=== PATIENT | male | born 1940 | race Caucasian/White ===

== ENCOUNTER → 2017-08-24 | Outpatient (CLI) | payer OTHER ==
[~2017-08-24] MED LIST: ASPIRIN EC81 M1 PO; BENICAR HCT 401 EACH PO; CALCIUM 600 MG1 EAC3 PO; COQ-10100 MG PO; CRESTOR10 MG PO; D-20002000 UNIT PO; FOLIC ACID1 MG PO; METHOTREXATE 22.5 MG PO; MULTIVITAMIN PO; NEXIUM40 MG PO; NIASPAN 500 MG500 M1 PO; PLAVIX 75 MG TA75 MG PO; PREDNISONE 2.52.5 M1 PO; TOPROL XL50 MG PO
[2017-08-24 09:00] LABS: CALCIUM 9.6 mg/dL (8.5-10.1); CREATININE 1.4 mg/dL (0.7-1.3); POTASSIUM 4.4 mmol/L (3.5-5.1)
== END ==
LOC: CAT 07:36 → LABMALL 08:12
PROVIDERS: Internal Medicine Cardiovascular Disease
DX: I71.4 Abdominal aortic aneurysm, without rupture (principal); I25.10 Atherosclerotic heart disease of native coronary artery without angina pectoris; K76.89 Other specified diseases of liver; N28.1 Cyst of kidney, acquired; N20.0 Calculus of kidney; N42.89 Other specified disorders of prostate; I70.8 Atherosclerosis of other arteries; R93.5 Abnormal findings on diagnostic imaging of other abdominal regions, including retroperitoneum

== ENCOUNTER → 2019-09-23 | Outpatient (CLI) | payer OTHER | LOC: SJCVC 14:12 | DX: R94.31 Abnormal electrocardiogram [ECG] [EKG] (principal); I25.10 Atherosclerotic heart disease of native coronary artery without angina pectoris; I12.9 Hypertensive chronic kidney disease with stage 1 through stage 4 chronic kidney disease, or unspecified chronic kidney disease; N18.3 Chronic kidney disease, stage 3 (moderate); E78.00 Pure hypercholesterolemia, unspecified; I73.9 Peripheral vascular disease, unspecified; Z95.828 Presence of other vascular implants and grafts; Z79.899 Other long term (current) drug therapy; Z87.891 Personal history of nicotine dependence ==

== ENCOUNTER → 2020-03-28 | Outpatient (CLI) | payer OTHER | LOC: SJCVCIMAG 08:11 | PROVIDERS: ATTEND Internal Medicine Cardiovascular Disease | DX: I65.23 Occlusion and stenosis of bilateral carotid arteries (principal); I71.4 Abdominal aortic aneurysm, without rupture; I25.10 Atherosclerotic heart disease of native coronary artery without angina pectoris; E78.00 Pure hypercholesterolemia, unspecified; I73.9 Peripheral vascular disease, unspecified; I10 Essential (primary) hypertension; R07.89 Other chest pain; Z95.828 Presence of other vascular implants and grafts; Z98.890 Other specified postprocedural states ==

== ENCOUNTER → 2020-04-19 | Outpatient (CLI) | payer OTHER ==
[~2020-04-19] VITALS: Ht 175.3 cm; Wt 88.9 kg
[~2020-04-19] MED LIST changes: +ASHWAGANDHA RO300 MG PO; +ASTAXANTHIN4 MG PO; +AVAPRO 150 MG150 M1 PO; +BERBERINE PO; +FLOMAX0.4 MG PO; +FOSAMAX 70 MG T70 MG PO; +PROSCAR 5MG TABL5 MG PO; +RESVERATROL50 MG PO; +TURMERIC500 M2 PO; +UBIQUINOL100 MG PO; +[UNRECOGNIZED DRUG - OTHER] PO; +[UNRECOGNIZED DRUG - OTHER] PO
--- NOTE | ~2020-04-19 | HPC ---
[facility] [address] [place] [address] PAIN MANAGEMENT CONSULTATION Name: TOM MACHADO Room #: REG URIEL Terri#: [id number] Admission: 04/19/20 Attend Phys: Curtis Caldwell MD Discharge: Date of : 36 Report #: [id number] CC: River Caldwell DATE OF SERVICE: 04/19/2020 CHIEF COMPLAINT: Pain radiating into the right hip. I am seeing the patient at the request of Dr. Chino. He has pain in his right hip that has been ruled out as vascular claudication. He has a stent in his right iliac artery. He has good flow. His symptoms however are very classic for claudication. He walks a short distance and has to sit ____ sits for a short period of time; he can get up and walk again. He has about 5 minutes. The pain is modest at rest 3, but can be severe enough to stop him in his tracks. He does not have any x-rays. PQRS ASSESSMENT: Positive for osteoarthritis. He has pain in his hands, knees and elbows. No evidence of hip arthropathy on exam today. He is 5 feet 9 inches, BMI 28.9, blood pressure 110/60, heart rate 88, respirations 16, O2 sat 98; pain intensity at rest 3, with action can exceed 8. His worst pain has been a 10. The patient is on blood thinners, but has not fallen in the last 3 months. He is treated for hypertension. He is not on opioids. His risk assessment score is 3. His functional assessment score is 48. Denies use of tobacco, drinks alcohol a couple of times a day and in social setting averages 14 units of alcohol per week. PAST MEDICAL HISTORY: Significant for bleeding tendencies, on Plavix; hypertension, heart disease with stents. Myocardial infarctions in 1991 and 1994. Carotid surgery on the left in the past. He has AAA stent. Iliac stent replacement in 2017. He had good success with a cervical epidural injection in [address] Donnie Bryant. SOCIAL HISTORY: He retired at the age of 48 back in the days when [employer] provided pensions. He worked for [email or web address] that gave him a lifetime pension and lifetime insurance benefits; unbelievable. No [employer] in [place] provides that today. PHYSICAL EXAMINATION: GENERAL: Pleasant gentleman. VITAL SIGNS: As noted. MUSCULOSKELETAL: Moves independently from sitting to standing position, ambulates with antalgic features. Positive straight leg raising with discomfort, reproducing pain into the right hip. There is no pain with internal and external rotation. IMPRESSION: Lumbar radiculopathy on the left with neurogenic claudication. RECOMMENDATIONS: MRI is ordered. I would like to have him back for an epidural injection in 1-2 weeks. If this is radicular pain, it should respond favorably. It will be diagnostic as well as therapeutic. He needs to be off his Plavix and we will confirm that with Dr. Chino before we proceed with the injection. Seven day is how long we need him off of his medication. By: 1729 1808 Curtis Caldwell MD /nt
[2020-04-19 13:16] VITALS: BP 110/62
--- NOTE | 2020-04-19 13:45 | NUR ---
Pain Clinic Assessment: 1. History of Osteoarthritis: Not Applicable History of Rheumatoid Arthritis: hands knees elbows 2. Height: 5 ft. 9 in. 175.3 cm. Weight: 196.0 lb. oz. 88.905 kg. Patient's BMI: 28.9 3. Vital Signs: BP: 110/62 Pulse: 88 Resp: 16 Temp: 02 Sat: 98 ECG Mon: 4. Pain Intensity: 3 5. Fall Risk: Dizziness: N Needs help standing or walking: N Fallen in the last 3 months: N Fall risk comments: 6. Patient on Blood Thinner: Clopidogrel Bisulf(Plavix 7. History of Hypertension: Y 8. Opioid Therapy greater than 6 weeks: N Opiate Contract Signed: 9. Risk Assessment Tool Provided: 3-low 10. Functional Assessment Tool: 11. Recreational Drug Use: Never Drug Type: Tobacco Use: Former Smoker Tobacco Type: Amount or Packs/day: How Many Years: Alcohol Use: Yes Frequency: Daily Quant: 2
== END ==
LOC: PAIN 04-17 13:26
PROVIDERS: ATTEND Anesthesiology Pain Medicine
DX: M54.16 Radiculopathy, lumbar region (principal); Z79.891 Long term (current) use of opiate analgesic

== ENCOUNTER → 2020-04-27 | Outpatient (CLI) | payer OTHER | LOC: MRI 13:53 | PROVIDERS: ATTEND Anesthesiology Pain Medicine | DX: M47.816 Spondylosis without myelopathy or radiculopathy, lumbar region (principal); M48.061 Spinal stenosis, lumbar region without neurogenic claudication; M51.36 Other intervertebral disc degeneration, lumbar region ==

== ENCOUNTER → 2020-05-10 | Outpatient (CLI) | payer OTHER ==
[~2020-05-10] VITALS: Ht 175.3 cm; Wt 91.6 kg
[2020-05-10 09:09] VITALS: BP 129/57
--- NOTE | 2020-05-10 09:14 | NUR ---
Pain Clinic Assessment: 1. History of Osteoarthritis: LUMBAAAR SPINE History of Rheumatoid Arthritis: hands knees elbows 2. Height: 5 ft. 9 in. 175.3 cm. Weight: 202.0 lb. oz. 91.627 kg. Patient's BMI: 29.8 3. Vital Signs: BP: 129/57 Pulse: 80 Resp: 16 Temp: 02 Sat: 98 ECG Mon: 4. Pain Intensity: 0-AT REST 5. Fall Risk: Dizziness: N Needs help standing or walking: N Fallen in the last 3 months: N Fall risk comments: 6. Patient on Blood Thinner: Clopidogrel Bisulf(Plavix 7. History of Hypertension: Y 8. Opioid Therapy greater than 6 weeks: N Opiate Contract Signed: 9. Risk Assessment Tool Provided: 3-low 10. Functional Assessment Tool: 11. Recreational Drug Use: Never Drug Type: Tobacco Use: Former Smoker Tobacco Type: Amount or Packs/day: How Many Years: Alcohol Use: Yes Frequency: Quant:
== END | disposition home or self-care (01) ==
LOC: PAIN 06:50
PROVIDERS: ATTEND Anesthesiology Pain Medicine
DX: M54.16 Radiculopathy, lumbar region (principal); M48.061 Spinal stenosis, lumbar region without neurogenic claudication; I10 Essential (primary) hypertension; M19.90 Unspecified osteoarthritis, unspecified site; Z79.899 Other long term (current) drug therapy; Z98.890 Other specified postprocedural states; Z87.891 Personal history of nicotine dependence; Z91.041 Radiographic dye allergy status; Z91.040 Latex allergy status; Z88.8 Allergy status to other drugs, medicaments and biological substances; Z88.0 Allergy status to penicillin

== ENCOUNTER → 2020-05-16 | Outpatient (CLI) | payer OTHER | LOC: SJCVCIMAG 10:43 | PROVIDERS: ATTEND Internal Medicine Cardiovascular Disease | DX: I49.3 Ventricular premature depolarization (principal); I25.10 Atherosclerotic heart disease of native coronary artery without angina pectoris; I10 Essential (primary) hypertension; E78.5 Hyperlipidemia, unspecified; Z87.891 Personal history of nicotine dependence; Z79.82 Long term (current) use of aspirin; Z79.899 Other long term (current) drug therapy; Z98.61 Coronary angioplasty status ==

== ENCOUNTER → 2020-07-16 | Outpatient (CLI) | payer OTHER ==
[~2020-07-16] VITALS: Ht 175.3 cm; Wt 92.2 kg
[2020-07-16 10:57] VITALS: BP 116/57
--- NOTE | 2020-07-16 11:22 | NUR ---
Pain Clinic Assessment: 1. History of Osteoarthritis: lumbar History of Rheumatoid Arthritis: hands knees elbows 2. Height: 5 ft. 9 in. 175.3 cm. Weight: 203.2 lb. oz. 92.171 kg. Patient's BMI: 30.0 3. Vital Signs: BP: 116/57 Pulse: 86 Resp: 16 Temp: 02 Sat: 96 ECG Mon: 4. Pain Intensity: 0-AT REST 5. Fall Risk: Dizziness: N Needs help standing or walking: N Fallen in the last 3 months: N Fall risk comments: 6. Patient on Blood Thinner: Clopidogrel Bisulf(Plavix 7. History of Hypertension: Y 8. Opioid Therapy greater than 6 weeks: N Opiate Contract Signed: 9. Risk Assessment Tool Provided: 3-low 10. Functional Assessment Tool: 11. Recreational Drug Use: Never Drug Type: Tobacco Use: Former Smoker Tobacco Type: Cigarettes Amount or Packs/day: 1 1/2 ppd How Many Years: 52 Alcohol Use: Yes Frequency: Daily Quant: 2 drinks/day
== END | disposition home or self-care (01) ==
LOC: PAIN 06:54
PROVIDERS: ATTEND Anesthesiology Pain Medicine
DX: M51.16 Intervertebral disc disorders with radiculopathy, lumbar region (principal); M48.061 Spinal stenosis, lumbar region without neurogenic claudication; G89.29 Other chronic pain; I10 Essential (primary) hypertension; M19.90 Unspecified osteoarthritis, unspecified site; Z98.890 Other specified postprocedural states; Z79.899 Other long term (current) drug therapy; Z79.891 Long term (current) use of opiate analgesic; Z88.0 Allergy status to penicillin; Z88.8 Allergy status to other drugs, medicaments and biological substances; Z91.041 Radiographic dye allergy status

== ENCOUNTER → 2020-10-29 | Outpatient (CLI) | payer OTHER ==
[~2020-10-29] VITALS: Ht 175.3 cm; Wt 93.4 kg
[2020-10-29 13:40] VITALS: BP 111/72
--- NOTE | 2020-10-29 13:58 | NUR ---
Pain Clinic Assessment: 1. History of Osteoarthritis: lumbar History of Rheumatoid Arthritis: hands knees elbows BACK 2. Height: 5 ft. 9 in. 175.3 cm. Weight: 206.0 lb. oz. 93.441 kg. Patient's BMI: 30.4 3. Vital Signs: BP: 111/72 Pulse: 115 Resp: 16 Temp: 02 Sat: 97 ECG Mon: 4. Pain Intensity: 8-9 WHEN ACTIVE, 0-REST 5. Fall Risk: Dizziness: N Needs help standing or walking: N Fallen in the last 3 months: N Fall risk comments: 6. Patient on Blood Thinner: Clopidogrel Bisulf(Plavix 7. History of Hypertension: Y 8. Opioid Therapy greater than 6 weeks: N Opiate Contract Signed: 9. Risk Assessment Tool Provided: 3-low 10. Functional Assessment Tool: 11. Recreational Drug Use: Never Drug Type: Tobacco Use: Former Smoker Tobacco Type: Cigarettes Amount or Packs/day: 1 1/2 PPD How Many Years: 52 Alcohol Use: Yes Frequency: Daily Quant: 2/SHOTS/DAY
== END ==
LOC: PAIN 09:52
PROVIDERS: ATTEND Anesthesiology Pain Medicine
DX: M16.0 Bilateral primary osteoarthritis of hip (principal); M54.16 Radiculopathy, lumbar region; Z79.82 Long term (current) use of aspirin; Z79.899 Other long term (current) drug therapy; Z88.0 Allergy status to penicillin; Z88.8 Allergy status to other drugs, medicaments and biological substances

== ENCOUNTER → 2021-01-31 | Outpatient (CLI) | payer OTHER | LOC: SJCVCIMAG 09:14 | PROVIDERS: ATTEND Internal Medicine Cardiovascular Disease | DX: I65.21 Occlusion and stenosis of right carotid artery (principal); I70.201 Unspecified atherosclerosis of native arteries of extremities, right leg; I49.3 Ventricular premature depolarization; I77.9 Disorder of arteries and arterioles, unspecified; I25.10 Atherosclerotic heart disease of native coronary artery without angina pectoris; I10 Essential (primary) hypertension; R07.89 Other chest pain; E78.00 Pure hypercholesterolemia, unspecified; Z98.890 Other specified postprocedural states; Z95.828 Presence of other vascular implants and grafts; Z88.8 Allergy status to other drugs, medicaments and biological substances; Z79.82 Long term (current) use of aspirin; Z79.899 Other long term (current) drug therapy; Z87.891 Personal history of nicotine dependence; Z82.49 Family history of ischemic heart disease and other diseases of the circulatory system ==

== ENCOUNTER 2021-02-19 07:40 | Observation (INO) | payer OTHER ==
[~2021-02-19] VITALS: Ht 175.3 cm; Wt 90.7 kg
[2021-02-19] VITALS (9 sets, daily range): BP systolic 119–136; BP diastolic 47–75
[2021-02-19 12:24] LABS: ABSOLUTE NEUTROPHILS 5.8 thou/uL (1.4-8.2); BASOPHILS 0.3 % (0.0-2.0); EOSINOPHILS 1.3 % (0.0-3.0); HEMATOCRIT 35.3 % (42.0-52.0); HEMOGLOBIN 11.7 gm/dL (14.0-18.0); LYMPHOCYTES 11.7 % (24.0-44.0); MCH 32.8 pg (26.0-34.0); MCHC 33.2 g/dL (28.0-37.0); MCV 98.8 fL (80.0-100.0); MONOCYTES 7.4 % (1.0-8.0); PLATELET COUNT 123 thou/uL (150-400); POLYS 79.3 % (36.0-66.0); RBC 3.58 mil/uL (4.50-6.00); RDW 14.7 % (10.5-14.5); WBC 7.3 thou/uL (4.0-11.0)
[2021-02-19 12:29] LABS: CALCIUM 9.1 mg/dL (8.5-10.1); CREATININE 1.6 mg/dL (0.7-1.3); POTASSIUM 4.1 mmol/L (3.5-5.1)
[2021-02-19 12:36] LABS: ALBUMIN 3.4 g/dL (3.4-5.0); TOTAL BILIRUBIN 0.7 mg/dL (0.2-1.0); TOTAL PROTEIN 6.2 g/dL (6.4-8.2)
[2021-02-19 15:18] LABS: URINE BILIRUBIN NEGATIVE (Negative); URINE BLOOD TRACE (Negative); URINE CLARITY CLEAR; URINE COLOR YELLOW; URINE GLUCOSE-RANDOM* NEGATIVE (Negative); URINE KETONES NEGATIVE (Negative); URINE LEUKOCYTES-REFLEX NEGATIVE (Negative); URINE NITRITE-REFLEX NEGATIVE (Negative); URINE PROTEIN (DIPSTICK) NEGATIVE (Negative); URINE SPECIFIC GRAVITY <= 1.005 (1.005-1.035); URINE UROBILINOGEN 0.2 E.U./dl (0.2-1.0)
--- NOTE | 2021-02-19 15:33 | NUR ---
PT ORIENTED TO ROOM AND UNIT, BED LOW AND LOCKED, SIDE RAILS UPX3, CALL LIGHT IN REACH, RIGHT GROIN CDI, TELE APPLIED WILL CONTINUE TO ASSESS.
[2021-02-20 00:07] VITALS: BP 139/53
[2021-02-20 04:00] VITALS: BP 132/55
[2021-02-20 04:47] LABS: HEMATOCRIT 31.9 % (42.0-52.0); HEMOGLOBIN 10.8 gm/dL (14.0-18.0); MCH 33.3 pg (26.0-34.0); MCHC 33.9 g/dL (28.0-37.0); MCV 98.4 fL (80.0-100.0); RBC 3.25 mil/uL (4.50-6.00); RDW 15.1 % (10.5-14.5); WBC 10.2 thou/uL (4.0-11.0)
[2021-02-20 05:22] LABS: ALBUMIN 2.9 g/dL (3.4-5.0); CALCIUM 8.3 mg/dL (8.5-10.1); CREATININE 1.3 mg/dL (0.7-1.3); POTASSIUM 4.5 mmol/L (3.5-5.1); TOTAL BILIRUBIN 0.4 mg/dL (0.2-1.0); TOTAL PROTEIN 5.3 g/dL (6.4-8.2); TROPONIN-I 0.09 ng/mL (<0.06)
--- NOTE | 2021-02-20 07:48 | EKG ---
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: FSCHWALBE : 1940 Requested By: Beatrice Robert Order Number: [id number] MD: Constantine Morin Measurements Intervals Baker Rate: 79 P: 47 OK: 176 QRS: 42 QRSD: 95 T: 61 QT: 359 QTc: 412 Interpretive Statements Sinus rhythm Ventricular premature complex Borderline low voltage, extremity leads Baseline wander in lead(s) V6 Compared to ECG 09/26/2008 07:34:49 Ventricular premature complex(es) now present Electronically Signed On 02-20-2021 7:48:06 CDT by Constantine Morin [email or web address] <ELECTRONICALLY SIGNED> By: Constantine Morin MD, FAC 02/20/21 0748 182 27 Constantine Morin MD, [facility] /EPI
[2021-02-20 08:01] VITALS: BP 150/66
[2021-02-20 10:59] LABS: APTT 22.4 Seconds (24.5-32.8); INR 1.04; PROTIME 11.3 Seconds (10.5-12.1)
[2021-02-20 12:14] VITALS: BP 120/60
[2021-02-20 13:02] VITALS: BP 120/60
--- NOTE | 2021-02-20 13:49 | NUR ---
DISCONTINUE IV AND TELE. PT UNDERSTAND ALL FOLLOW UP ORDERS. [employer] T[employer]OR CONTACTED JIGNA TOMLIN AND PT OK TO GO HOME. DISCHARGE TO [facility] VIA PRIVATE VEHICLE.
--- NOTE | 2021-02-21 15:22 | HC ---
[facility] [place] [address] [place] [address] CONSULTATION Name: TOM MACHADO Room #: 208-P [facility] Za Murray#: [id number] Admission: 02/19/21 Attend Phys: Charan Monge MD Discharge: 02/20/21 Date of : 38 Report #: [id number] THIS REPORT FOR: cc: River Lindo MD, Eric K. MD Forman, John M. MD ~ DATE OF SERVICE: 02/20/2021 We were asked to see the patient by Dr. Monge. HISTORY OF PRESENT ILLNESS: The patient is an 80-year-old with right lower extremity arterial occlusive disease. The patient states that he has had buttock claudication for approximately 1 year. Recently, however, the patient has begun to have right calf discomfort. This led to an arteriogram by Dr. Monge that shows 95% right femoral artery stenosis. The patient has had a previous aortic stent graft placed for aneurysm. Also, the runoff views show no superficial femoral artery occlusive disease on the right and popliteal and at least proximal tibial vessels are patent. The patient has a history of coronary artery disease and had stent placement. The patient is also treated for hypertension and dyslipidemia. MEDICATIONS: Includes aspirin, Plavix, Proscar, metoprolol, prednisone, Crestor, tadalafil, Flomax. ALLERGIES: THE PATIENT STATES HE IS ALLERGIC TO PENICILLIN, STATES THAT HE TOOK THIS WHEN HE WAS 12 FOR PNEUMONIA AND WAS "OUT OF IT FOR 2 DAYS," BUT DOES NOT KNOW THE SPECIFIC REACTION. HE ALSO NOTE GI INTOLERANCE TO ERYTHROMYCIN AND AN ALLERGY TO IODINE CONTRAST. SOCIAL HISTORY: The patient is a longtime smoker who has quit. REVIEW OF SYSTEMS: GENERAL: Denies change in weight, fever or chills. EYES: Denies vision change. ENT: Denies hearing loss or sinus problems. RESPIRATORY: Denies cough or shortness of breath or hemoptysis. CARDIAC: Denies angina. GASTROINTESTINAL: Denies nausea, vomiting, blood in stools. GENITOURINARY: Denies urgency, frequency, blood. MUSCULOSKELETAL: Denies bone or joint pain. SKIN: Denies rash or infection. [facility] [address] [place] [address] CONSULTATION Name: TOM MACHADO CADDO MILLS Room #: 208-P [facility] Terri#: [id number] Admission: 02/19/21 Attend Phys: Charan Monge MD Discharge: 02/20/21 Date of : 38 Report #: [id number] ENDOCRINE: Denies goiter or tremor. NEUROLOGIC: Denies motor or sensory dysfunction. HEMATOLOGIC: Denies bruisability or bleeding. PHYSICAL EXAMINATION: GENERAL: The patient is lying in bed, awaiting discharge. VITAL SIGNS: Temperature 36.4, heart rate 82, respiratory rate 16, blood pressure 150/66, pulse ox 96 on room air. HEENT: No scleral icterus. No arcus. NECK: No mass. I hear no bruit. CHEST: Clear to auscultation. HEART: Rhythm regular, no murmur. ABDOMEN: Soft, no mass, no tenderness. EXTREMITIES: No clubbing, cyanosis or edema. VASCULAR: 1+ femoral pulse on the right. No popliteal, dorsalis pedis or posterior tibial pulse on the right. The left side, the femoral artery was accessed for vascular study yesterday, popliteal pulses 2+. I do not feel dorsalis pedis on the left. NEUROLOGIC: No motor or sensory dysfunction. MUSCULOSKELETAL: No obvious bone or joint asymmetry or deformity. SKIN: No rash or infection. PSYCHIATRIC: Oriented x3 and appropriate, shows insight into problem. I reviewed the arteriographic findings with the patient. I have recommended that he have a right femoral endarterectomy. The risks and details of this were discussed. Options and alternatives were reviewed. Risks include, but are not limited to, bleeding, infection, anesthesia risks, and failure of the operation. The patient understands all of this and he wishes to proceed. The patient wishes to wait until after 03/05/2021 to schedule surgery. From my point of view, this is satisfactory. It is a privilege to participate in this challenging patient's care. Thank you for the consult. <ELECTRONICALLY SIGNED> By: Richard Valdez MD 02/21/21 1522 1030 2149 Richard Valdez MD /nt
--- NOTE | 2021-02-21 16:42 | CATHLAB ---
[facility] [address] [place] [address] INVASIVE PROCEDURE REPORT Name: TOM MACHADO Room #: 208-P [facility] Za M.RCarlos#: [id number] Admission: 02/19/21 Attend Phys: Charan Monge MD Discharge: 02/20/21 Date of : 38 Report #: [id number] THIS REPORT FOR: cc: River Lindo MD, Eric K. MD Mancuso, Gerald M. MD [facility] ~ APPROVED REPORT Study performed: 02/19/2021 12:02:35 Procedure Narrative A 6f brite tip sheath sheath was inserted into the LFA^. Coronary angiography was performed using coronary diagnostic catheters. The right coronary system was accessed and visualized with a JR4 catheter. The left coronary system was accessed and visualized with a JL4 catheter. The left ventricle was accessed and visualized with a STR PIG catheter. Left ventriculogram was performed in 30 degree projection. There was no hematoma. Intraoperative Conscious Sedation Sedation start time: 1255 Case end Time: 1410 Fentanyl 100 mcg Versed 1 mg Fluoro Time: 22.42 minutes Dose: DAP 36639.10 cGycm2 3389 mGy Contrast Type and Amount: Visipaque 322 ml Hemodynamics The aortic pressure is 138/55 mmHg with a mean of 80 mmHg. The left ventricular pressure is 154/8 mmHg with a mean of mmHg. The left ventricular end diastolic pressure is 20 mmHg. PCI Technique Lesion Percutaneous coronary intervention was performed on the Common iliac. A LAUNCHER 6FR JR 4 90CM #[id number] Guide Catheter was used to engage the ostium. A Luge Wire .014 x 182CM #[id number] Interventional Guidewire was used to cross the lesion. BALLOON DILATION A Balloon catheter Sprinter OTW 2.5 x 12 #[id number] was inserted and inflated up to 16atm for 33seconds. Additional Inflation: 18atm for 26seconds. [facility] [place] [address] INVASIVE PROCEDURE REPORT Name: TOM MACHADO VAMSI Room #: 208-P [facility] IN M.R.#: [id number] Admission: 02/19/21 Attend Phys: Charan Monge, Discharge: 02/20/21 Date of : 38 Report #: [id number] STENT DEPLOYMENT A stent RESOLUTE YADIEL OTW 2.75 X 12 #[id number] was inserted and inflated up to 20atm for 34seconds. POST STENT DEPLOYMENT BALLOON DILATION A Balloon catheter TREK NC OTW 3.0 X 12 #[id number] was inserted and inflated up to 16atm for 23seconds. Additional Inflation: 22atm for 21seconds. Additional Inflation: 22atm for 19seconds. This balloon was used to post the 1st sent 2.75x12. STENT DEPLOYMENT A stent RESOLUTE YADIEL OTW 3.0 X 8 #[id number] was inserted and inflated up to 18atm for 30seconds. Additional Inflation: 20atm for 27seconds. This 2nd stent placed prox to the 2.75x12. POST STENT DEPLOYMENT BALLOON DILATION A Balloon catheter TREK NC OTW 3.5 X 12 #[id number] was inserted and inflated up to 16atm for 23seconds. Additional Inflation: 22atm for 21seconds. Additional Inflation: 22atm for 19seconds. PCI Technique Lesion 2 Percutaneous Coronary Intervention was performed on the mid right coronary artery. PCI Technique Lesion 3 Percutaneous Coronary Intervention was performed on the mid right coronary artery. Conclusion #1 Successful PTCA stent of a high-grade mid RCA lesion in a large dominant vessel. Placement of a 2.75 x 12 and 3 oh by 8 resolute Baldwin stents in tandem postdilated with a 3.5 mm noncompliant balloon with MIGUEL grade III flow no dissection or thrombus formation. Technically difficult but with good final result. #2 left main with mild calcification and distal tapered narrowing giving rise to LAD and circumflex. #3 extensive calcification of proximal LAD with moderate irregularities proximal and mid vessel but no high-grade occlusive disease. This wraps the apex. Previously placed mid vessel stents remain patent with only mild restenosis. #4 circumflex OM nondominant also with proximal calcification and eccentric 70 to 75% proximal lesion filling a large OM branch. We will follow this. #5 normal left ventricular size and systolic function EF 60%. [facility] [address] [place] [address] INVASIVE PROCEDURE REPORT Name: TOM MACHADO Room #: 208-P DIS IN M.R.#: [id number] Admission: 02/19/21 Attend Phys: Charan Monge, Discharge: 02/20/21 Date of : 36 Report #: [id number] Recommendations and plan: Continue aggressive risk factor modification. Dual antiplatelet therapy has been initiated. Transfer to CCU to follow post coronary stent protocol. <ELECTRONICALLY SIGNED> By: Rigo Chino MD, FACC 02/21/211641 41 41 Rigo Chino MD, FACC /INF
== END 2021-02-20 13:13 | disposition home or self-care (01) ==
LOC: CATH 07:40 → 2N 15:34 → CATH 02-20 09:49 → 2N 02-20 13:13
PROVIDERS: Nurse Practitioner Adult Health; Surgery Vascular Surgery; ADMIT Internal Medicine Cardiovascular Disease; ATTEND Nuclear Medicine Nuclear Cardiology
DX: I25.10 Atherosclerotic heart disease of native coronary artery without angina pectoris (principal); I73.9 Peripheral vascular disease, unspecified; I10 Essential (primary) hypertension; E78.5 Hyperlipidemia, unspecified; I71.4 Abdominal aortic aneurysm, without rupture; Z79.02 Long term (current) use of antithrombotics/antiplatelets; Z79.899 Other long term (current) drug therapy; Z88.0 Allergy status to penicillin; Z91.013 Allergy to seafood; Z91.041 Radiographic dye allergy status; Z88.1 Allergy status to other antibiotic agents; Z88.8 Allergy status to other drugs, medicaments and biological substances; Z79.01 Long term (current) use of anticoagulants

== ENCOUNTER → 2021-03-18 | Outpatient (CLI) | payer OTHER ==
[~2021-03-18] MED LIST changes: +RAYOS5 MG PO
== END ==
LOC: LAB 06:38
PROVIDERS: ATTEND Student in an Organized Health Care Education/Training Program
DX: Z01.812 Encounter for preprocedural laboratory examination (principal); Z20.822 Contact with and (suspected) exposure to COVID-19

== ENCOUNTER 2021-03-19 06:06 | Inpatient (IN) | payer OTHER ==
[2021-03-19] VITALS (11 sets, daily range): BP systolic 94–130; BP diastolic 37–67
[~2021-03-19] VITALS: Ht 175.3 cm; Wt 88.5 kg
--- NOTE | 2021-03-19 14:58 | O ---
[facility] [place] [address] [place] [address] OPERATIVE REPORT Name: TOM MACHADO Room #: 249-P ADM IN M.R.#: [id number] Admission: 03/19/21 Attend Phys: Richard Valdez MD Discharge: Date of : 36 Report #: [id number] THIS REPORT FOR: cc: River Lindo MD, Eric K. MD Forman,Richadr Robledo MD ~ DATE OF SERVICE: 03/19/2021 PREOPERATIVE DIAGNOSIS: Right femoral arterial occlusive disease. POSTOPERATIVE DIAGNOSIS: Right femoral arterial occlusive disease. OPERATION: Right femoral endarterectomy with patch closure. SURGEON: Richard Valdez MD SNOW GROOMER: TAURUS Ferrari ANESTHESIA: General. INDICATIONS: The patient is an 80-year-old with limiting claudication in the right lower extremity. Arteriography demonstrates high-grade stenosis in the superficial femoral artery with reasonable runoff. FINDINGS AND TECHNIQUE: After general anesthesia was established, incision was made in the right groin to expose the common, deep and superficial femoral artery. The patient had had previous stent graft implant and arteriography and for these reasons, there was considerable scarring around the femoral artery. Once these arteries were exposed and controlled, 10,000 units of heparin were given. The femoral arteriotomy was made. The endarterectomy was performed without creating a distal flap. Neointima was inspected and all loose debris was removed. When the endarterectomy was deemed to be satisfactory, tacking sutures were placed at the transition zone and then the arteriotomy was closed with thin-walled pericardial patch and running Prolene. Prior to finishing the closure, the vessels were backbled and the artery was irrigated with heparinized saline. Flow was reestablished. Protamine was given to reverse the heparin and when hemostasis was satisfactory, the wound was closed in layers. Because the patient was on aspirin and Plavix, this took the typical extended amount of time. The patient tolerated the [facility] [address] [place] [address] OPERATIVE REPORT Name: CHANDANAMERONTOM LOPEZ Room #: 249-P [facility] IN .R.#: [id number] Admission: 03/19/21 Attend Phys: Richard Valdez MD Discharge: Date of : 36 Report #: [id number] procedure well and was taken to the recovery area in good condition with a strong popliteal pulse. All counts were reported as correct. <ELECTRONICALLY SIGNED> By: Richard Valdez MD 03/19/21 1458 1207 1220 Richard Valdez MD /nt
--- NOTE | 2021-03-19 17:59 | NUR ---
PT ARRIVED TO THE UNIT FROM PACU VIA 2 STAFF ESCORT, BELONGINGS IN A CLEAR BAG W/ NIKE MONARCHs PRESENT. AT THE TIME OF ARRIVAL 2.5 CARDENE RUNNING, ARTLINE PRESENT IN THE PATIENT. NO COMPLAINTS OF PAIN. AT THE TIME OF FIRST ASSESSMENT POPLITEAL PULSES WERE PRESENT. STATES HAVING ALL SENSATIONS IN TACT, PULSES PRESENT IN ALL EXTREMETIES. R GROIN NO S/SX OF HEMATOMA, WOUND DRESSING IN CLEAN/DRY/INTACT AND TO SUCTION. SAW THE PATIENT. PT TO BE MONITORED OVERNIGHT AT THE ICU. BLOOD PRESSURE FROM CUFF READS LOWER THAN THE R RADIAL ART LINE WAVEFORM. WILL ADHERE TO THE ARTLINE FOR TREATMENT. PT'S SON WAS IN THE ROOM PRESENT DURING THE ADMISSION AND HAD OPPORTUNITY TO ASK THE STAFF MEMBER QUESTIONS. PT WISHED TO SPEAK WITH ON THE PHONE SO RNs ACCOMODATED TO HAVE COMMUNICATE VIA PHONE. PAIN IS MINIMAL, HYDROCODONE X1 GIVEN. PT AGREEABLE TO PLAN OF CARE AND ADHERING THE IT. CONTINUING TO MONITOR, WILL UPDATE WHEN NECESSARY
[2021-03-20] VITALS (10 sets, daily range): BP systolic 101–124; BP diastolic 42–53
[2021-03-20 06:08] LABS: HEMATOCRIT 28.3 % (42.0-52.0); HEMOGLOBIN 9.4 gm/dL (14.0-18.0); MCH 32.9 pg (26.0-34.0); MCHC 33.4 g/dL (28.0-37.0); MCV 98.7 fL (80.0-100.0); RBC 2.87 mil/uL (4.50-6.00); RDW 14.7 % (10.5-14.5); WBC 9.7 thou/uL (4.0-11.0)
[2021-03-20 06:20] LABS: CALCIUM 8.3 mg/dL (8.5-10.1); CREATININE 1.4 mg/dL (0.7-1.3); POTASSIUM 3.9 mmol/L (3.5-5.1)
--- NOTE | 2021-03-20 12:04 | NUR ---
Status post right femoral arterial endarterectomy with patch closure. Noted per CT surgery today with strong right popliteal pulse. Spouse Rosi at [phone] and sone Kee at [phone] listed as next of kin. Spoke son who states huis father is A&O x4, drives and can do all ADL's. Patient has even arranged for home food delivery in his post hospitalization convalesce. Son reports no history of Home Health or Skilled in the past. Patient and son and are anticipating discharge home with possible home health. CM will follow for MD recommendations of need at discharge.
--- NOTE | 2021-03-20 20:11 | NUR ---
ASSUMED CARE OF PT AT 0700. PT IS PROGRESSING TOWARDS GOALS BP IS STABLE, HAS GOOD PULSES, ORDERS TO TRANSFER TO STEP DOWN.
[2021-03-21 00:01] VITALS: BP 131/60
[2021-03-21 02:01] VITALS: BP 141/62
[2021-03-21 04:00] VITALS: BP 139/52
[2021-03-21 06:00] VITALS: BP 157/66
--- NOTE | 2021-03-21 10:07 | PATH ---
[facility] [address] [place] [address] PATHOLOGY RPT PROCEDURE Name: TOM MACHADO Room #: 249-P ADM IN M.R.#: [id number] Admission: 03/19/21 Date of : 36 Discharge: Report #: [id number] Path Case #: [id number] [facility] Accession Number: [id number] . 01 Material submitted: . artery - RIGHT FEMORAL PLAQUE. Modifiers: right, femoral . 01 Clinical history: . FEMORAL ENDARTERECTOMY . 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 (IUV/db; 03/20/2021) LBQ 03/20/2021 1414 Local . 02 Electronically signed: . Yessi Balderrama MD, Pathologist NPI- [id number] . 01 Gross description: . The specimen is received in formalin, labeled "Tom Machado, right femoral plaque". It consists of multiple fitzgerald-yellow, focally calcified soft tissue segments measuring 4.3 x 2.1 x 1.0 cm in aggregate. 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 (MRF; 03/19/2021) MFE/MFE 03/19/2021 1818 Local . 02 Pathologist provided ICD-10: I70.201 . 02 CPT . 489547, 432356 Specimen Comment: A courtesy copy of this report has been sent to [phone], [phone] Specimen Comment: [id number] Specimen Comment: Report sent to / DR WERNER Specimen Comment: A duplicate report has been generated due to demographic updates. Performed at: 01 [facility] [address] [id number] MD Daniel Frazier MD Phone: [phone] Performed at: [address] [id number] [address] [address] PATHOLOGY RPT PROCEDURE Name: TOM MACHADO INDEPENDENCE Room #: 249-P [facility] IN M.R.#: [id number] Admission: 03/19/21 Date of : 36 Discharge: Report #: [id number] Path Case #: [id number] MD Yessi Balderrama MD Phone: [phone]
[2021-03-21 14:05] VITALS: BP 157/66
--- NOTE | 2021-03-21 15:59 | NUR ---
ASSUMED CARE OF PT AT [address] ALBRIGHT AT BEDSIDE AT 1030 DISCHARGE ORDERS GIVEN PT LEFT THE HOSPITAL WITH HIS SON JER AT 1350 WITH ALL CLOTHES TO INCLUDE, SHIRT, SHORTS, BELT UNDERWEAR, SOCK AND SHOES, THE PATIENT ALSO HAD HIS GLASSES AND HIS SHAVING KIT WITH HIM.
== END 2021-03-21 15:50 | disposition home or self-care (01) | DRG 254 ==
LOC: TBA 06:06 → ICU 06:06 → OR 09:31 → EDSTATUS 09:33 → PRE 09:42 → ICU 13:21
PROVIDERS: ADMIT Surgery Vascular Surgery; ATTEND Surgery Vascular Surgery
PROC: 04CK0ZZ Extirpation of Matter from Right Femoral Artery, Open Approach (ICD-10-PCS; principal; 2021-03-19)
PROC: 04UK0KZ Supplement Right Femoral Artery with Nonautologous Tissue Substitute, Open Approach (ICD-10-PCS; principal; 2021-03-19)
DX: I70.201 Unspecified atherosclerosis of native arteries of extremities, right leg (principal); I10 Essential (primary) hypertension; Z79.82 Long term (current) use of aspirin; Z79.899 Other long term (current) drug therapy; Z88.1 Allergy status to other antibiotic agents; Z91.041 Radiographic dye allergy status; Z88.0 Allergy status to penicillin; Z91.013 Allergy to seafood
CPT/HCPCS: 10078; 10203; 10204; 47375; 48889; 50010; 50101; 50386; 50455; 50643; 50953; 52287; 56524; 56526; 56528; 56531; 56534; 56668; 56760; 57092; 57093; 58585; 58731; 62110; 62900; 65020; 70005

== ENCOUNTER → 2021-06-19 | Outpatient (CLI) | payer OTHER | LOC: SJCVCIMAG 08:10 | PROVIDERS: ATTEND Nuclear Medicine Nuclear Cardiology | DX: R94.31 Abnormal electrocardiogram [ECG] [EKG] (principal); I71.4 Abdominal aortic aneurysm, without rupture; I25.10 Atherosclerotic heart disease of native coronary artery without angina pectoris; I12.9 Hypertensive chronic kidney disease with stage 1 through stage 4 chronic kidney disease, or unspecified chronic kidney disease; N18.30 Chronic kidney disease, stage 3 unspecified; I77.9 Disorder of arteries and arterioles, unspecified; E78.00 Pure hypercholesterolemia, unspecified; Z88.8 Allergy status to other drugs, medicaments and biological substances; Z88.0 Allergy status to penicillin; Z91.013 Allergy to seafood; Z95.828 Presence of other vascular implants and grafts; Z98.890 Other specified postprocedural states; Z79.82 Long term (current) use of aspirin; Z79.899 Other long term (current) drug therapy; Z72.89 Other problems related to lifestyle; Z87.891 Personal history of nicotine dependence ==

== ENCOUNTER 2021-07-03 17:54 | Emergency (ER) | payer OTHER ==
[~2021-07-03] VITALS: Ht 172.7 cm; Wt 88.9 kg
[2021-07-03 19:49] LABS: ABSOLUTE NEUTROPHILS 8.4 thou/uL (1.4-8.2); BASOPHILS 0.4 % (0.0-2.0); EOSINOPHILS 0.3 % (0.0-3.0); HEMATOCRIT 33.5 % (42.0-52.0); LYMPHOCYTES 4.9 % (24.0-44.0); MCH 31.9 pg (26.0-34.0); MCHC 32.8 g/dL (28.0-37.0); MCV 97.2 fL (80.0-100.0); MONOCYTES 11.2 % (1.0-8.0); PLATELET COUNT 138 thou/uL (150-400); POLYS 83.2 % (36.0-66.0); RBC 3.44 mil/uL (4.50-6.00); RDW 15.6 % (10.5-14.5); WBC 10.1 thou/uL (4.0-11.0)
[2021-07-03 19:50] LABS: CALCIUM 9.4 mg/dL (8.5-10.1); CREATININE 1.4 mg/dL (0.7-1.3); POTASSIUM 3.7 mmol/L (3.5-5.1)
[2021-07-03 19:59] LABS: ALBUMIN 3.4 g/dL (3.4-5.0); TOTAL BILIRUBIN 0.7 mg/dL (0.2-1.0); TOTAL PROTEIN 6.7 g/dL (6.4-8.2)
[2021-07-03] MEDS ORDERED: DOXYCYCLINE 10100 MG PO (22:03)
[2021-07-03 22:10] VITALS: BP 115/70
--- NOTE | 2021-07-04 07:44 | EKG ---
[address] [employer] [place] [address] ELECTROCARDIOGRAM REPORT Name: TOM MACHADO Room #: [facility] [id number] Admission: 07/03/21 Attend Phys: Discharge: 07/03/21 Date of : 36 Report #: [id number] [facility] ED Test Date: 2021-07-03 Test Time: 18:03:00 Pat Name: TOM MACHADO Department: Room: Gender: M Riveter Helper: ZACK : 1940 Requested By: Carlin Petty Order Number: [id number] MD: Constantine Morin Measurements Intervals [place] Rate: 100 P: 53 IA: 167 QRS: 50 QRSD: 94 T: 70 QT: 300 QTc: 387 Interpretive Statements Sinus tachycardia Multiform ventricular premature complexes Anteroseptal infarct, old Compared to ECG 02/19/2021 18:28:16 Myocardial infarct finding now present Sinus rhythm no longer present Electronically Signed On 07-04-2021 7:44:17 [employer] by Constantine Morin [email or web address] <ELECTRONICALLY SIGNED> By: Constantine Morin MD, [facility] 07/04/21 0744 02 02 Constantine Morin MD, [facility] /EPI
== END 2021-07-03 22:18 | disposition home or self-care (01) ==
LOC: ER 17:54
PROVIDERS: Emergency Medicine
DX: R07.89 Other chest pain (principal); Z20.822 Contact with and (suspected) exposure to COVID-19; R05.9 Cough, unspecified; J06.9 Acute upper respiratory infection, unspecified; M19.90 Unspecified osteoarthritis, unspecified site; I25.10 Atherosclerotic heart disease of native coronary artery without angina pectoris; I10 Essential (primary) hypertension; E78.00 Pure hypercholesterolemia, unspecified; I73.9 Peripheral vascular disease, unspecified; Z98.890 Other specified postprocedural states; Z90.89 Acquired absence of other organs; Z79.82 Long term (current) use of aspirin; Z79.899 Other long term (current) drug therapy; Z79.891 Long term (current) use of opiate analgesic; Z88.0 Allergy status to penicillin; Z88.4 Allergy status to anesthetic agent; Z91.041 Radiographic dye allergy status; Z91.013 Allergy to seafood